=== PATIENT | male | born 1955 | race Caucasian/White ===

== ENCOUNTER → 2016-06-18 | Outpatient (CLI) | payer BC ==
[~2016-06-18] MED LIST: CPR500T PO
--- OUTSIDE RECORDS SUMMARY | 2016-06-18 11:21 | XMS REPORT | Continuity of Care Document ---
Author Author [facility] Organization [facility] Address Unknown Phone Unavailable Allergies Active Description Code Type Severity Reaction Onset Reported/Identified Relationship to Patient Clinical Status Yes No Known Drug Allergies [id number] Drug Allergy Unknown N/ A 12/30/2011 Yes Sulfa (Sulfonamide Antibiotics) [id number] Drug Allergy Moderate HIVES 05/16/2015 Medications Problems Date Dx Coded Attending Type Code Diagnosis Diagnosed By 05/16/2015 SANTIAGO QUIROZ MD Ot K57.30 05/16/2015 SANTIAGO QUIROZ MD Ot K64.1 05/16/2015 SANTIAGO QUIROZ MD Ot Z12.11 05/16/2015 SANTIAGO QUIROZ MD Ot Z80.0 Procedures Results Encounters ACCT No. Visit Date/Time Discharge Status Pt. Type Provider Facility Loc./Unit Complaint [id number] 05/16/2015 11:14:00 2015 14:30:00 DIS Outpatient SANTIAGO QUIROZ MD [facility] [id number] 05/14/2015 05:37:00 ACT Outpatient SANTIAGO QUIROZ MD [facility] PREOP
--- NOTE | 2016-06-18 11:50 | Diagnostic Imaging Report ---
AP and lateral views of the left tibia-fibula. INDICATION: Injury. FINDINGS: There is no fracture, dislocation, or radiopaque foreign body. The proximal and distal joints appear grossly unremarkable. IMPRESSION: Unremarkable exam. Dictated by: Dictated on workstation # [id number]
== END ==
LOC: RAD 11:14
PROVIDERS: ATTEND Nurse Practitioner Family
DX: S80.12XA Contusion of left lower leg, initial encounter (principal); X58.XXXA Exposure to other specified factors, initial encounter; Y99.8 Other external cause status
CPT/HCPCS: 73590

== ENCOUNTER → 2017-11-30 | Outpatient (CLI) | payer BC ==
--- NOTE | 2017-11-30 11:06 | Diagnostic Imaging Report ---
INDICATION: History of prostate carcinoma. TECHNIQUE: Two view chest 10:46 AM CORRELATION STUDY: 05/26/2010 FINDINGS: Heart size, mediastinum and vasculature stable. Lung mahoney are clear but demonstrate chronic, senescent type changes to be present. Slight hyperexpansion. Mild degenerative changes thoracic spine present. IMPRESSION: 1. Stable chest demonstrate no acute abnormality. Chronic type change about the lung parenchyma. Dictated by: Dictated on workstation # [id number]
== END ==
LOC: RAD 09:03
PROVIDERS: ATTEND Urology
DX: C61 Malignant neoplasm of prostate (principal); J98.4 Other disorders of lung
CPT/HCPCS: 71046

== ENCOUNTER 2021-07-22 05:31 | Outpatient (CLI) | payer BC, MEDICARE ==
[~2021-07-22] VITALS: Ht 177.8 cm; Wt 85.0 kg
[2021-07-22] MEDS ORDERED: ENAL20TA16 PO (11:06)
[2021-07-22] MEDS ORDERED: AMLO-250 PO (11:06)
== END 2021-07-22 14:24 | disposition home or self-care (01) ==
LOC: PREOP 05:31
PROVIDERS: ATTEND Surgery
DX: Z01.818 Encounter for other preprocedural examination (principal)

== ENCOUNTER 2021-07-29 09:25 | Day surgery (SDC) | payer MEDICARE, OTHER ==
[~2021-07-29] VITALS: Ht 177.8 cm; Wt 85.0 kg
[~2021-07-29 09:25] MED LIST changes: +AMLO-250 PO; +ENAL20TA16 PO
[2021-07-29] MEDS ORDERED: LACTATED RINGERS 1,000 ML IV STA (09:41)
[2021-07-29] MEDS ORDERED: LIDOCAINE JELLY 2% 6 ML SYRINGE MM PRN (09:45)
--- NOTE | 2021-07-29 09:46 | Progress Note-Pre Operative ---
Pre-Operative Progress Note H&P Reviewed The H&P was reviewed, patient examined and no changes noted. Date Seen by Provider: Jul 29, 2021 Time Seen by Provider: 09:45 Date H&P Reviewed: Jul 29, 2021 Time H&P Reviewed: 09:45 Pre-Operative Diagnosis: screening/family hx SANTIAGO QUIROZ MD Jul 29, 2021 09:46
[2021-07-29 09:47] VITALS: BP 120/67
--- NOTE | 2021-07-29 09:47 | Discharge Inst-Surgical ---
D/C Lap Instructions-GABRIELLA Follow Up Activity as tolerated High Fiber Diet 25g or more per day Avoid Alcohol, Caffeine, Spicy Strawn and Acid foods. Drink 64 fluid oz or more of fluids per day. Symptoms to Report: Fever over 101 degree F, Nausea/Vomiting If any problems/questions: Contact your physician or go to Emergency Room SANTIAGO QUIROZ MD Jul 29, 2021 09:47
[2021-07-29] MEDS ORDERED: ONDANSETRON 4 MG (ZOFRAN) ORAL DISSOLVE TAB PO PRN (10:00)
[2021-07-29] MEDS ORDERED: ONDANSETRON 4 MG/2 ML (SDV) Z0FRAN IVP PRN (10:00)
[2021-07-29] MEDS ORDERED: PROPOFOL INJECTION 50 ML IV ONE (10:12)
[2021-07-29] MEDS ORDERED: GLYCOPYRROLATE 0.2 MG/ML (ROBINUL) 2 ML VIAL ONE (11:05)
[2021-07-29 11:10] VITALS: BP 83/53
[2021-07-29 11:15] VITALS: BP 84/52
[2021-07-29 11:20] VITALS: BP 89/51
--- NOTE | 2021-07-29 11:20 | Progress Note-Post Operative ---
Post-Operative Progess Note Surgeon (s)/Supervisor [employer] (s) Surgeon SANTIAGO QUIROZ MD Supervisor [employer]: none Pre-Operative Diagnosis screening/family hx Post-Operative Diagnosis mild chronic stage 2 ext and int hemorrhoids, small HP rectosigomoid. Procedure & Operative Findings Date of Procedure 07/29/21 Procedure Performed/Findings colonoscopy with bx. Anesthesia Type mac Estimated Blood Loss Estimated blood loss (mL): minimal Specimens/Packing Specimens Removed rectosigmoid polyp. SANTIAGO QUIROZ MD Jul 29, 2021 11:20
[2021-07-29 11:50] VITALS: BP 102/63
--- NOTE | 2021-07-29 16:00 | OPERATIVE REPORT ---
DATE OF SERVICE: 07/29/2021 ATTENDING PRIMARY CARE PHYSICIAN: Dr. Leobardo Stevens. PREOPERATIVE DIAGNOSIS: Screening colonoscopy. POSTOPERATIVE DIAGNOSES: Mild chronic stage II external and internal hemorrhoids, small hyperplastic polyp of the sigmoid colon, 2 mm in size. PROCEDURE: Colonoscopy with hot biopsy forceps polypectomy. SURGEON: Santiago Quiroz MD. ANESTHESIA: Monitored anesthesia care. ESTIMATED BLOOD LOSS: Minimal. FINDINGS: Same as postoperative diagnoses. DISPOSITION: The patient tolerated the procedure well. INDICATIONS: The patient is a 65-year-old male referred over to us for screening colonoscopy. His last colonoscopy was approximately 6 years ago. He does have a first-degree family history of colon cancer with his mother being diagnosed with the disease in her 70s. DESCRIPTION OF PROCEDURE: The patient was brought to the endoscopy suite, laid in the left lateral decubitus position. After adequate IV pain and sedative medications and monitored anesthesia care, a digital rectal examination was performed. Chronic stage II external and internal hemorrhoids were identified, which were not actively edematous nor inflamed and no bleeding. Normal sphincter tone was felt and there were no palpable masses. Prostate gland was palpable and appeared normal. The endoscope was then intubated into the anus and rectum gently insufflated. The endoscope was then advanced through the valves of Lewis of the rectum with no polyps or any neoplasms identified. Using the [employer]ius, a lesion was identified at the rectosigmoid junction, which appeared to be a small hyperplastic polyp approximately 2 mm in size. This was biopsied and destroyed with forceps and electrocautery with visualization of good hemostasis. The endoscope was then advanced through remainder of the descending, transverse and ascending colon to the cecum, which appeared normal with no other lesions identified. The endoscope was then slowly withdrawn while taking a second look and suctioning of residual air with no additional findings. The patient tolerated the procedure well. We will recommend the necessary lifestyle and dietary accommodation including the addition of a fiber supplement, which should equal or exceed 30 grams daily to promote soft stools on a daily basis. Due to his first-degree family history of colon cancer, we will recommend a followup colonoscopy in approximately 5 years. Job ID: [id number] DocumentID: [id number] Dictated Date: 07/29/2021 11:15:42 [place] Machine Operator Date: 07/29/2021 15:59:52 Dictated By: SANTIAGO QUIROZ MD [facility]
== END 2021-07-29 11:57 | disposition home or self-care (01) ==
LOC: ENDO 09:25
PROVIDERS: ATTEND Surgery
DX: Z12.11 Encounter for screening for malignant neoplasm of colon (principal); D12.5 Benign neoplasm of sigmoid colon; K64.1 Second degree hemorrhoids; K64.4 Residual hemorrhoidal skin tags; Z80.0 Family history of malignant neoplasm of digestive organs; Z85.46 Personal history of malignant neoplasm of prostate

== ENCOUNTER → 2021-11-23 | Outpatient (CLI) | payer MEDICARE, OTHER ==
--- NOTE | 2021-11-23 11:19 | Diagnostic Imaging Report ---
PROCEDURE: CT chest without contrast. TECHNIQUE: Multiple contiguous axial images were obtained through the chest without the use of intravenous contrast. Auto Exposure Controls were utilized during the CT exam to meet ALARA standards for radiation dose reduction. INDICATION: Abnormal outside chest x-ray. FINDINGS: Abnormal mediastinal contour on outside radiographs is owing to a right paramedian anterior mediastinal lobulated mass extending a cephalocaudal height of 7 cm and in the axial plane measuring dimensions 6.7 x 5.6 cm. It is predominately very well-defined with a lobulated contour however its left lateral component is somewhat indistinct. It showed no extension above the thoracic inlet inlet and the mass is well separable from the unremarkable appearing thyroid. It has a few areas of punctate echogenicity which are likely calcification as well as some diminished zones of density likely fat. Its unclear if the fat itself is intralesional and signifying a teratoma or if the fat is engulfed in normal mediastinal fat trapped between the lobations of this mass. There is no hilar adenopathy and the remaining mediastinal stations appeared unremarkable. No lung mass or suspicious pulmonary parenchymal nodule. No evidence for edema or pneumonia. No suspicious lytic or sclerotic bony lesion. The visualized upper abdomen shows a cyst in the right hepatic lobe with no adrenal mass or upper abdominal adenopathy. No ascites or free air. IMPRESSION: Mixed density soft tissue anterior mediastinal mass calcifications and likely a fatty components suggestive of a teratoma. Lymphoma and thymoma however could not be excluded. FDG PET has been shown to be a useful tool for differentiating indeterminate anterior mediastinal masses, that study is suggested as further evaluation. No lung mass. No other lesion coronary artery. Atherosclerotic vascular calcifications noted incidentally. Dictated by: Dictated on workstation # [id number]
== END ==
LOC: RAD 09:03
PROVIDERS: ATTEND Urology
DX: C61 Malignant neoplasm of prostate (principal); C64.9 Malignant neoplasm of unspecified kidney, except renal pelvis; I25.10 Atherosclerotic heart disease of native coronary artery without angina pectoris
CPT/HCPCS: 71250

== ENCOUNTER → 2022-03-10 | Outpatient (CLI) | payer MEDICARE, OTHER ==
[~2022-03-10] MED LIST changes: +GADOTERATE 0.5 MMOL/ML (CLARISCAN) 20 ML VIAL IV ONE
--- NOTE | 2022-03-10 15:52 | Diagnostic Imaging Report ---
PROCEDURE: MR imaging of the brain with and without contrast. TECHNIQUE: Multiplanar, multisequence MR imaging of the brain was performed with and without contrast. INDICATION: Thymic malignancy. COMPARISON: No priors. FINDINGS: No abnormal diffusion restriction. No findings of acute or subacute infarct. There is no hemorrhage. No focal nor generalized cerebral edema. There are no abnormal extra-axial fluid collections. After contrast was administered, there was no abnormal parenchymal or meningeal enhancement. There were no findings of intracranial neoplasm, primary or metastatic. We incidentally note a left frontal lobe developmental venous anomaly. Orbits and sinuses are unremarkable. IMPRESSION: No infarct, hemorrhage, mass, or acute/suspicious abnormalities. Dictated by: Dictated on workstation # [id number]
== END ==
LOC: RAD 09:30
PROVIDERS: ATTEND Student in an Organized Health Care Education/Training Program
DX: C37 Malignant neoplasm of thymus (principal)
CPT/HCPCS: 70553

== ENCOUNTER 2022-06-02 07:15 | Emergency (ER) | payer MEDICARE, OTHER ==
[~2022-06-02] VITALS: Ht 180.3 cm; Wt 84.3 kg
[~2022-06-02 07:15] MED LIST changes: -GADOTERATE 0.5 MMOL/ML (CLARISCAN) 20 ML VIAL IV ONE
--- NOTE | 2022-06-02 07:54 | ED General ---
General Chief Complaint: Fever-Adult/Adol Stated Complaint: CHEMO PT | FEVER | BODY ACHES Nursing Triage Note: PT AMB TO RM 6 WITH COMPLAINT OF FEVER, JOINT PAIN, SORE THROAT, NASAL DRAINAGE AND COUGH. STATES HAD CHEMO ON TUESDAY. Source of Information: Patient Exam Limitations: No Limitations History of Present Illness Date Seen by Provider: Jun 02, 2022 Time Seen by Provider: 07:40 Initial Comments Patient is a 66-year-old male with a history of thymic cancer, hypertension and remote prostate cancer who presents to the emergency room with concern for fever to 101 during the night. Patient had his last chemoinfusion last . He states normally some days of the day that he feels the worst. He states his body aches and generalized malaise continued through yesterday and last evening started having a sore throat as well as fever. He has an occasionally productive cough without shortness of breath. Denies headache. He has had a l ittle congestion. No earache. No abdominal pain, nausea or vomiting. No difficulty with urination or bowel movements. No rashes. He states Tmax was at around 5 in the morning, took his temp tympanic at 101. He took one 500 mg Tylenol at around 530. He was 100.[address] to the hospital. No sick contacts at home. All other review of systems reviewed and negative except as stated Timing/Duration: 1-2 Days Severity: Moderate Associated Systoms: Cough, Malaise, Other (sore throat; body aches) Allergies and Home Medications Allergies Coded Allergies: Sulfa (Sulfonamide Antibiotics) (Verified Allergy, Intermediate, HIVES, 05/14/15) Iodinated Contrast Media (Unverified Allergy, Unknown, 07/22/21) Patient Home Medication List Home Medication List Reviewed: Yes Amlodipine Besylate (Amlodipine Besylate) 5 Mg Tablet, 5 MG PO DAILY, (Reported) Entered as Reported by: NAHOMY SUAREZ on 07/22/21 110 Enalapril Maleate (Enalapril Maleate) 20 Mg Tablet, 20 MG PO DAILY, (Reported) Entered as Reported by: NAHOMY SUAREZ on 07/22/21 110 Nirmatrelvir/Ritonavir (Paxlovid 300-100 mg Pack (Eua)) 300 Mg (150 Mg X 2)-100 Mg Tab.ds.pk, 1 EACH PO BID Prescribed by: QI ZAMUDIO on 06/02/22 0917 Review of Systems Review of Systems Constitutional: see HPI, fever, malaise EENTM: nose congestion, throat pain Respiratory: cough, phlegm (occasional) Cardiovascular: no symptoms reported Gastrointestinal: no symptoms reported Genitourinary: no symptoms reported Musculoskeletal: no symptoms reported Skin: no symptoms reported Psychiatric/Neurological: No Symptoms Reported Past Zeimofj-Yuyktb-Jjqizv Hx Patient Social History Tobacco Use?: No Use of E-Cig and/or Vaping dev: No Substance use?: No Alcohol Use?: No Pt feels they are or have been: No Immunizations Up To Date First/Initial COVID19 Vaccinat: YES Second COVID19 Vaccination Og: YES Third COVID19 Vaccination Date: YES Seasonal Allergies Seasonal Allergies: No Past Medical History Surgeries: Yes Prostatectomy Respiratory: No Cardiac: Yes (BRADYCARDIA) Hypertension Neurological: No Genitourinary: Yes Prostate Problems Gastrointestinal: No Musculoskeletal: No Endocrine: No HEENT: No Cancer: Yes Prostate Did You Recieve Any Treatments: Yes What Type of Treatment Did You: Surgical Intervention Psychosocial: No Integumentary: No Blood Disorders: No Family Medical History Colon cancer Physical Exam Vital Signs Vital Signs - First Documented 06/02/22 07:20 Temp 36.7 Pulse 63 Resp 17 B/P (MAP) 155/83 (107) Pulse Ox 100 O2 Delivery Room Air Capillary Refill : Less Than 3 Seconds Height, Weight, BMI Height: 5'11.00" Weight: 190lbs. oz. 86.558127cg; 25.00 BMI Method: General Appearance: No Apparent Distress, WD/WN Eyes: Bilateral Eye Normal Inspection, Bilateral Eye PERRL, Bilateral Eye EOMI HEENT: PERRL/EOMI, TMs Normal, Normal ENT Inspection, Pharynx Normal, Moist Mucous Membranes Neck: Normal Inspection, Supple Respiratory: Lungs Clear, Normal Breath Sounds, No Accessory Muscle Use, No Respiratory Distress Cardiovascular: Regular Rate, Rhythm Gastrointestinal: Normal Bowel Sounds, Non Tender, Soft Extremity: Normal Capillary Refill, Normal Inspection, Normal Range of Motion, No Pedal Edema Neurologic/Psychiatric: Alert, Oriented x3, No Motor/Sensory Deficits, Normal Mood/Affect, fruit pitter II-XII Norm as Tested Skin: Normal Color, Warm/Dry Focused Exam Lactate Level 06/02/22 08:12: Lactic Acid Level 1.09 Lactic Acid Level Laboratory Tests Test 06/02/22 08:12 Lactic Acid Level 1.09 MMOL/L (0.50-2.00) Progress/Results/Core Measures Suspected Sepsis SIRS Temperature: Pulse: 63 Respiratory Rate: 17 Laboratory Tests 06/02/22 08:12: White Blood Count 4.1L Blood Pressure 155 /83 Mean: 107 06/02/22 08:12: Lactic Acid Level 1.09 Laboratory Tests 06/02/22 08:12: Creatinine 0.93, INR Comment 0.9, Platelet Count 146, Total Bilirubin 0.4 Results/Orders Lab Results Laboratory Tests Test 06/02/22 07:54 06/02/22 07:58 06/02/22 08:12 Range/Units Influenza Type A (RT-PCR) Not Detected Not Detecte Influenza Type B (RT-PCR) Not Detected Not Detecte SARS-CoV-2 RNA (RT-PCR) Detected H Not Detecte Urine Color YELLOW Urine Clarity CLEAR Urine pH 7.0 5-9 Urine Specific Deloit 1.015 L 1.016-1.022 Urine Protein NEGATIVE NEGATIVE Urine Glucose (UA) NEGATIVE NEGATIVE Urine Ketones NEGATIVE NEGATIVE Urine Nitrite NEGATIVE NEGATIVE Urine Bilirubin NEGATIVE NEGATIVE Urine Urobilinogen 0.2 < = 1.0 MG/DL Urine Leukocyte Esterase NEGATIVE NEGATIVE Urine RBC (Auto) NEGATIVE NEGATIVE Urine RBC RARE /HPF Urine WBC NONE /HPF Urine Crystals NONE /LPF Urine Bacteria NEGATIVE /HPF Urine Casts NONE /LPF Urine Mucus NEGATIVE /LPF Urine Culture Indicated NO White Blood Count 4.1 L 4.3-11.0 10^3/uL Red Blood Count 3.95 L 4.30-5.52 10^6/uL Hemoglobin 12.6 L 13.3-17.7 g/dL Hematocrit 37 L 40-54 % Mean Corpuscular Volume 93 80-99 fL Mean Corpuscular Hemoglobin 32 25-34 pg Mean Corpuscular Hemoglobin Concent 34 32-36 g/dL Red Cell Distribution Width 12.5 10.0-14.5 % Platelet Count 146 130-400 10^3/uL Mean Platelet Volume 9.5 9.0-12.2 fL Immature Granulocyte % (Auto) 1 % Neutrophils (%) (Auto) 80 H 42-75 % Lymphocytes (%) (Auto) 15 12-44 % Monocytes (%) (Auto) 3 0-12 % Eosinophils (%) (Auto) 1 0-10 % Basophils (%) (Auto) 1 0-10 % Neutrophils # (Auto) 3.3 1.8-7.8 10^3/uL Lymphocytes # (Auto) 0.6 L 1.0-4.0 10^3/uL Monocytes # (Auto) 0.1 0.0-1.0 10^3/uL Eosinophils # (Auto) 0.0 0.0-0.3 10^3/uL Basophils # (Auto) 0.0 0.0-0.1 10^3/uL Immature Granulocyte # (Auto) 0.0 0.0-0.1 10^3/uL Prothrombin Time 12.9 12.2-14.7 SEC INR Comment 0.9 0.8-1.4 Activated Partial Thromboplast Time 28 24-35 SEC Sodium Level 134 L 135-145 MMOL/L Potassium Level 4.6 3.6-5.0 MMOL/L Chloride Level 102 98-107 MMOL/L Carbon Dioxide Level 24 21-32 MMOL/L Anion Gap 8 5-14 MMOL/L Blood Urea Nitrogen 13 7-18 MG/DL Creatinine 0.93 0.60-1.30 MG/DL Estimat Glomerular Filtration Rate 90 BUN/Creatinine Ratio 14 Glucose Level 108 H 70-105 MG/DL Lactic Acid Level 1.09 0.50-2.00 MMOL/L Calcium Level 9.3 8.5-10.1 MG/DL Corrected Calcium 9.2 8.5-10.1 MG/DL Total Bilirubin 0.4 0.1-1.0 MG/DL Aspartate Amino Transf (AST/SGOT) 38 H 5-34 U/L Alanine Aminotransferase (ALT/SGPT) 50 0-55 U/L Alkaline Phosphatase 73 40-136 U/L Total Protein 7.1 6.4-8.2 GM/DL Albumin 4.1 3.2-4.5 GM/DL My Orders Orders - QI ZAMUDIO MD Covid 19 Inhouse Test (06/02/22 07:50) Influenza A And B By Pcr (06/02/22 07:50) Isolation Central Supply Req (06/02/22 07:50) Cbc With Automated Diff (06/02/22 07:50) Comprehensive Metabolic Panel (06/02/22 07:50) Blood Culture (06/02/22 07:50) Sputum Culture (06/02/22 07:50) Urinalysis (06/02/22 07:50) Urine Culture (06/02/22 07:50) Protime With Inr (06/02/22 07:50) Partial Thromboplastin Time (06/02/22 07:50) Chest 1 View, Ap/Pa Only (06/02/22 07:50) Ed Iv/Invasive Line Start (06/02/22 07:50) Ed Iv/Invasive Line Start (06/02/22 07:50) Vital Signs Adult Sepsis Patie Q15M (06/02/22 07:50) O2 (06/02/22 07:50) Remove Rings In Anticipation O (06/02/22 07:50) Lactic Acid Analyzer (06/02/22 07:50) Vital Signs/I&O 06/02/22 06/02/22 07:20 09:43 Temp 36.7 Pulse 63 76 Resp 17 18 B/P (MAP) 155/83 (107) 150/81 Pulse Ox 100 98 O2 Delivery Room Air Room Air Capillary Refill : Less Than 3 Seconds Blood Pressure Mean: 107 Progress Note #1: Time: 09:12 Progress Note Patient seen and evaluated by me, 66-year-old male with a history of thymic cancer currently undergoing chemotherapy. Evaluation today includes physical exam, sepsis protocol including CBC, Chem-12, urinalysis, coagulation profile, chest x-ray, blood cultures, lactic acid. He also had flu and COVID testing. Differential diagnosis sepsis, bacteremia, viral syndrome/COVID/flu. After review of labs, CBC with mildly depressed white blood cell count at 4, normal hemoglobin, normal chemistry, normal coags, negative urine, negative chest x-ray and normal lactic his COVID came back positive. Influenza negative. His vital signs of been stable. He is not nauseous. Not hypoxic not requiring oxygen supplementation. No increased work of breathing or respiratory distress. No concern for pneumonia. I discussed the case with his oncologist, at . He is agreeable with a course of Paxlovid. His oncologist also recommended obtaining a pulse oximeter and monitoring oxygen saturations with the instructions if they drop below 90% he needs to come back to the emergency room for admission to the hospital and steroids. I communicated all of these results with the family and the patient, they are comfortable with plan of care. I recommended Tylenol every 6 hours as needed for any temperature over 100.4. Blood cultures are pending. All questions are sought and answered. Patient is stable for discharge Progress Note #2: Time: 15:59 Progress Note Called by patient's at this time - she spoke with MD Betancur (patient's CA team), due to the pt being on eliquis (which is not reflected in this record) recommendations to not give the paxlovid and switch to the Molnupiravir. Therefore, paxlovid cancelled to the pharmacy and 800mg Molnupiravir ordered (4 tablets BID) for 5 days. Sent to [facility] pharmacy. Departure Impression Primary Impression: COVID-19 Additional Impression: Thymic cancer Disposition: 01 HOME, SELF-CARE Condition: Stable Departure-Patient Inst. Decision time for Depature: 09:15 Referrals: ELLIOT ISLAS MD (PCP/Family) Primary Care Physician Patient Instructions: COVID-19 (DC) Add. Discharge Instructions: Drink plenty of fluids to stay well-hydrated. You can take nfqb-aow-[id number] extra strength Tylenol, 2 tablets every 6 hours as needed for any fever over 100.4. You can also take 2 to 3 tablets of ibuprofen which is 600 mg with food every 6 hours for body aches and fever. I have sent a prescription for Paxlovid, the COVID antiviral medication to the [facility] pharmacy on [address]. Please take this as directed. Please watch her oxygen saturations over the next 2 to 3 days, if you note any numbers that are less than 90 please come back to the emergency room for reevaluation. Scripts Molnupiravir (Molnupiravir (Eua)) 200 Mg Capsule 800 MG PO BID for 5 Days, #40 CAP Prov: QI ZAMUDIO MD 06/02/22 Copy Copies To 1: ELLIOT ISLAS MD, KATHRYN M MD Jun 02, 2022 07:54
[2022-06-02 08:05] LABS: BILIRUBIN,URINE NEGATIVE (NEGATIVE); CLARITY,URINE CLEAR; COLOR,URINE YELLOW; GLUCOSE, URINE (UA) NEGATIVE (NEGATIVE); KETONES,URINE NEGATIVE (NEGATIVE); LEUKOCYTE ESTERASE ,URINE NEGATIVE (NEGATIVE); NITRITE,URINE NEGATIVE (NEGATIVE); PROTEIN,URINE NEGATIVE (NEGATIVE)
[2022-06-02 08:13] LABS: BACTERIA,URINE NEGATIVE /HPF; RBC,URINE RARE /HPF
[2022-06-02 08:22] LABS: BASOPHILS % (AUTO) 1 % (0-10); EOSINOPHILS % (AUTO) 1 % (0-10); HEMATOCRIT 37 % (40-54); HEMOGLOBIN 12.6 g/dL (13.3-17.7); LYMPHOCYTES # (AUTO) 0.6 10^3/uL (1.0-4.0); LYMPHOCYTES % (AUTO) 15 % (12-44); MEAN CORPUSCULAR HEMOGLOBIN 32 pg (25-34); MEAN CORPUSCULAR HGB CONC 34 g/dL (32-36); MEAN CORPUSCULAR VOLUME 93 fL (80-99); MEAN PLATELET VOLUME 9.5 fL (9.0-12.2); MONOCYTES # (AUTO) 0.1 10^3/uL (0.0-1.0); MONOCYTES % (AUTO) 3 % (0-12); NEUTROPHILS # (AUTO) 3.3 10^3/uL (1.8-7.8); NEUTROPHILS % (AUTO) 80 % (42-75); PLATELET COUNT 146 10^3/uL (130-400); WHITE BLOOD COUNT 4.1 10^3/uL (4.3-11.0)
[2022-06-02 08:32] LABS: INR 0.9 (0.8-1.4); PROTHROMBIN TIME PATIENT 12.9 SEC (12.2-14.7)
[2022-06-02 08:34] LABS: ALBUMIN 4.1 GM/DL (3.2-4.5); POTASSIUM 4.6 MMOL/L (3.6-5.0)
[2022-06-02 08:35] LABS: CALCIUM 9.3 MG/DL (8.5-10.1)
[2022-06-02 08:37] LABS: TOTAL PROTEIN 7.1 GM/DL (6.4-8.2)
[2022-06-02 08:38] LABS: BILIRUBIN,TOTAL 0.4 MG/DL (0.1-1.0)
[2022-06-02 08:40] LABS: CREATININE SERUM 0.93 MG/DL (0.60-1.30)
--- NOTE | 2022-06-02 08:57 | Diagnostic Imaging Report ---
INDICATION: Covid positive, fever; thymic cancer, on chemotherapy. TECHNIQUE: Single view chest 8:48 AM. CORRELATION STUDY: CT chest 11/23/2021 FINDINGS: Heart size within normal limits. Abnormal widening of the right aspect of the mediastinum consistent with the known anterior mediastinal mass. Unchanged mildly elevated left diaphragm with minimal left lower lung volume loss. No infiltrate. IMPRESSION: 1. No infiltrate to suggest pneumonia. 2. Widened mediastinum consistent with the known anterior mediastinal mass. Dictated by: Dictated on workstation # [id number]
[2022-06-02] MEDS ORDERED: NIRM1TAB PO (09:17)
[2022-06-02 09:43] VITALS: BP 150/81
[2022-06-02] MEDS ORDERED: MOLN200C PO (15:39)
== END 2022-06-02 09:43 | disposition home or self-care (01) ==
LOC: EDUNIT# 07:15 → ER 07:17
DX: U07.1 COVID-19 (principal); R05.9 Cough, unspecified; R50.9 Fever, unspecified; R06.02 Shortness of breath; I10 Essential (primary) hypertension; C37 Malignant neoplasm of thymus; Z79.01 Long term (current) use of anticoagulants
CPT/HCPCS: 36415; 71045; 80053; 81000; 83605; 85025; 85610; 85730; 87040; 87088; 87636

== ENCOUNTER → 2022-12-30 | Outpatient (CLI) | payer MEDICARE, OTHER ==
[~2022-12-30] MED LIST changes: +ENAL-70 PO; -ENAL20TA16 PO; +MOLN200C PO; +NIRM1TAB PO
--- NOTE | 2022-12-30 14:29 | Diagnostic Imaging Report ---
PROCEDURE: US Thyroid. TECHNIQUE: Multiple real-time grayscale images were obtained of the thyroid in various projections. INDICATION: History of thyroid cancer. Abnormal finding on PET/CT COMPARISON: None available. FINDINGS: Both thyroid lobes demonstrate smooth and homogenous background echotexture. Color flow Doppler demonstrates normal and symmetric vascularity bilaterally. The right lobe measures 4.8 cm in length, 1.9 cm AP, and 1.7 cm transverse. The left lobe measures 4.9 cm in length, 1.5 cm AP, and 1.6 cm transverse. The isthmus measures 0.5 cm. Solid hypoechoic nodule seen in the right lobe of the thyroid near the isthmus measuring 1.4 x 0.7 x 0.9 cm. IMPRESSION: 1. Solid hypoechoic nodule within the right lobe of the thyroid near the isthmus measuring up to 1.4 cm. Based on size criteria follow-up in 12 months should be performed with thyroid ultrasound. Dictated by: Dictated on workstation # [id number]
== END ==
LOC: RAD 07:46
PROVIDERS: ATTEND Family Medicine
DX: E04.1 Nontoxic single thyroid nodule (principal); Z85.850 Personal history of malignant neoplasm of thyroid
CPT/HCPCS: 76536